=== PATIENT | male | born 1980 | race Caucasian/White ===

== ENCOUNTER 2018-09-09 09:31 | Emergency (ER) | payer OTHER ==
[~2018-09-09] VITALS: Ht 167.6 cm; Wt 170.0 kg
[2018-09-09] MEDS ORDERED: IPRATROPIUM BROMIDE (0.02%) 0.5MG/2.5ML NEB HHN STA (09:48)
[2018-09-09] MEDS ORDERED: METHYLPREDNISOLONE SOD SUCC 125 MG/2 ML VIAL IV STA (09:48)
[2018-09-09] MEDS ORDERED: ALBUTEROL (0.083%) 2.5MG/3ML NEB HHN STA (09:48)
[2018-09-09] MEDS ORDERED: LEVOFLOXACIN 500MG PREMIX 100 ML IV ONE (10:15)
[2018-09-09 10:32] LABS: EOSINOPHILS % 1.5 % (0.0-5.0); HEMATOCRIT. 59.9 % (42.0-52.0); HEMOGLOBIN. 17.7 g/dL (14.0-18.0); LYMPHOCYTES % 20.9 % (20.0-50.0); MEAN CORPUSCULAR HEMOGLOBIN 22.5 pg (28.0-32.0); MEAN CORPUSCULAR VOLUME 76.3 fL (80.0-94.0); MEAN PLATELET VOLUME 8.5 fl (7.4-10.4); MONOCYTES % 7.7 % (2.0-8.0); NEUTROPHILS % 68.9 % (40.0-76.0); PLATELET 168 x1000/uL (130-400); RED BLOOD CELL COUNT 7.86 mill/uL (4.7-6.1); RED CELL DISTRIBUTION WIDTH 19.8 % (11.6-14.6)
[2018-09-09 10:39] LABS: CHLORIDE 93 mEq/L (98-107)
[2018-09-09 11:37] LABS: CLARITY URINE CLEAR (CLEAR); COLOR URINE YELLOW (YELLOW); KETONES URINE NEGATIVE (NEGATIVE); LEUKOCYTE ESTERASE URINE NEGATIVE (NEGATIVE); NITRITE URINE NEGATIVE (NEGATIVE); OCCULT BLOOD URINE NEGATIVE (NEGATIVE); PROTEIN URINE 2+ (NEGATIVE); SPECIFIC GRAVITY URINE 1.016 (1.005-1.030)
[2018-09-09 11:42] LABS: INR 1.2
[2018-09-09] MEDS ORDERED: FUROSEMIDE 20MG/2ML VIAL IVP ONE (12:30)
[2018-09-09 15:21] VITALS: BP 132/87
== END 2018-09-09 15:30 | disposition short-term general hospital (02) ==
LOC: ER 09:31 → CANBEDREQ 20:59
DX: J96.01 Acute respiratory failure with hypoxia (principal); J18.0 Bronchopneumonia, unspecified organism; I11.0 Hypertensive heart disease with heart failure; I50.9 Heart failure, unspecified; E11.9 Type 2 diabetes mellitus without complications
CPT/HCPCS: 36415; 71045; 80053; 81003; 82962; 83605; 83880; 84145; 84484; 85025; 85610; 87040; 87086; 93005; 94640; 96365; 96375; 99291; J1940; J1956; J2930; J7611